=== PATIENT | female | born 1965 | race Caucasian/White ===

== ENCOUNTER 2018-10-01 09:37 | Emergency (ER) | payer SELFPAY ==
[~2018-10-01] VITALS: Ht 165.1 cm; Wt 63.5 kg
[2018-10-01 10:05] VITALS: BP 112/81
--- NOTE | 2018-10-01 10:26 | NUR ---
Pt's 4 puncture wounds and 1 cm laceration to right wrist were cleaned with sterile water and surgical scrub.
--- NOTE | 2018-10-01 10:55 | Diagnostic Imaging Report ---
INDICATION: Dogbite. Wrist pain. COMPARISON: None. FINDINGS: 2 views of the right wrist demonstrate no acute fracture or dislocation. There are no focal osseous lesions. No avascular necrosis is seen. The visualized soft tissue structures are unremarkable. The pronator fat pad is not displaced. There are no radio opaque foreign bodies. IMPRESSION: 1. Unremarkable radiographic exam of the right wrist. Dictated by: Dictated on workstation # [id number]
--- NOTE | 2018-10-01 10:59 | Diagnostic Imaging Report ---
INDICATION: Pain in the right forearm, status post dog bite. TIME OF EXAMINATION: 10:30 AM. TECHNIQUE: AP and lateral views of the forearm were obtained. FINDINGS: The alignment at the elbow and wrist appears normal. No definite fracture is seen. Lucency through the proximal ulna likely represents a vascular groove. No definite radiopaque soft tissue foreign body is seen. IMPRESSION: No acute abnormality is detected. Dictated by: Dictated on workstation # [id number]
--- NOTE | 2018-10-01 11:00 | NUR ---
Pt's dgt yelling for nurse to room. Pt is demanding pain med. Allergy reported as PCN to . Pt reported to Jeanette AVILA PCN and now Hydrocodone (rash/itching) when states she is ordering a pain pill. Pt asks "What do you have Dr?" "Do you have Demerol or Stadol?" Pt continues to pursue she only does better with these drugs. reports she will offer 1 dose Morphine and no scripts for home as not necessary if no fxs. Pt now states, "Dr I am allergic to Morphine! I break out and itch/rash." Pt was asked why are all the allergies coming up now.
[2018-10-01] MEDS ORDERED: HYDROcodone/APAP 5 MG/325 MG (LORTAB) TAB PO ONE (11:15)
--- NOTE | 2018-10-01 11:17 | ED General ---
General Chief Complaint: Bite-Animal/Human/Insect Stated Complaint: DOG BITE RT ARM Nursing Triage Note: Pt was brought to ER by private car, with daughter. She arrived with chief complaint of dig bite to right wrist. Pt stated onset was 919, was her son's dog and the dog is up to date on shots. Pt has controlled bleeding, with 4 puncture wounds to posterior wrist and 1 cm laceration to anterior wrist. Pt stated pain is a 10 and feels just like when she broke her wrist previously. Wounds were cleaned with sterile water and surgical scrub. Nursing Sepsis Screen: No Definite Risk History of Present Illness Date Seen by Provider: Oct 01, 2018 Time Seen by Provider: 10:30 Initial Comments This is a 53 y/o f who presents to the ED. States that she was attempting to separate two dogs that were fighting and was bitten to R forearm by her dog. Dog is fully vacinated. She states that she is UTD on tdap. She states pain is 10/10, sharp, worse with movement. Feels like previous wrist fractures. Allergies and Home Medications Allergies Coded Allergies: Penicillins (Verified Allergy, Unknown, anaphylactic, 10/01/18) hydrocodone (Verified Allergy, Unknown, rash, 10/01/18) Patient Home Medication List Home Medication List Reviewed: Yes Review of Systems Review of Systems Constitutional: No chills, No fever, No weakness Skin: +break in skin, no rash. Resp: no cough, no SOB, no wheezing Cards: no chest pain, no orthopnea, no LE edema, no palpitations GI: no abdominal pain, no nausea, no vomiting, no diarrhea : no dysuria Endo: no polyuria, no polyphagia, no polydipsia Psych: No depression, no substance abuse Past Setnirc-Ypsizl-Avkxea Hx Patient Social History Recent Foreign Travel: No Contact w/Someone Who Travel: No Recent Infectious Disease Expo: No Physical Abuse: No Sexual Abuse: No Mistreated: No Fear: No Physical Exam Vital Signs Vital Signs - First Documented 10/01/18 10:05 Temp 97.2 Pulse 72 Resp 24 B/P (MAP) 112/81 (91) Pulse Ox 100 O2 Delivery Room Air Capillary Refill : Less Than 3 Seconds Height, Weight, BMI Height: 5'5.00" Weight: 140lbs. 0oz. 63.039209al; BMI Method:Stated General Appearance: WD/WN, Anxious Comments HEENT: NC/AT Skin: 4 very small superficial abrasions to R forearm. Contrary to triage note there are no lacerations that require any approximation/further evaluation. All skin defects are superficial with no gaping. Neck: No JVD, Normal ROM Respiratory: No respiratory distress, lungs clear to auscultation bilateral, no wheezing, Cardio: RRR, no rubs, no murmurs, no clicks, no gallops, Radial pulses +2/4 bilateral Back: Normal ROM Extremities: R forearm with no obvious deformity. With distraction does not seem to have any tenderness. Observed to have normal use of RUE when distracted as well. Distal sensation intact. Radial pulse +2/4. Wiggles all 5 digits, declines to perform detail hand exam but noted to turkey picker objects apparently use hand appropriately. Psych: Anxious, agitated Progress/Results/Core Measures Suspected Sepsis Recent Fever Within 48 Hours: No Infection Criteria Present: None New/Unexplained Altered Menta: No Sepsis Screen: No Definite Risk SIRS Temperature:97.2 Pulse: 72 Respiratory Rate: 24 Blood Pressure 112 /81 Mean: 91 Results/Orders My Orders Orders - SHELDON SRIVASTAVA DO Forearm 2 View Right (10/01/18 10:21) Wrist 2 View Right (10/01/18 10:21) Amoxicillin/Clavulanate Tablet (Augmenti (10/01/18 17:00) Hydrocodone/Apap 5/325 Tablet (Lortab 5 (10/01/18 11:15) Vital Signs/I&O 10/01/18 10:05 Temp 97.2 Pulse 72 Resp 24 B/P (MAP) 112/81 (91) Pulse Ox 100 O2 Delivery Room Air Capillary Refill : Less Than 3 Seconds Blood Pressure Mean: 91 Progress Note : Time: 11:13 Progress Note pt an inconsistent historian during duration of ED visit. She initially stated that her tdap was UTD and then changed that. She also initially reported allergy to morphine/Hydrocodone (rash/hives) but then when advised that this facility did not have Demerol she changed her allergy. 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 Abrasions are very superficial and mild. Washed out by RN. Inconsistent effort during attempts at exam of RUE/hand exam but observed to use it appropriately to pick things up. Discussed plan for Augmentin course and pt stated "you can prescribed it but I won't take it" Educated onr david to be compliant and pt verbalized that she would take it. Advised OTC medications to control pain. Er return precautions given. Pt verbalized understanding. All questions answered. 11:22am After discharge typed up pt remains very agitated. She started yelling at the RN stating that she was "not answering any questions." She is yelling/ screaming. She dumped her ice pack on the floor. She is very upset that her XRs are normal. She refused Augmentin in the ER. She is refusing to stay for Tdap and is leaving AMA. She refused to sign AMA paperwork. pt left prior to getting her d/c paperwork. Departure Impression Primary Impression: Bite by animal Additional Impression: Dog bite Disposition: 07 AGAINST MEDICAL ADVICE Condition: Stable Departure-Patient Inst. Decision time for Depature: 11:18 Referrals: NO,LOCAL PHYSICIAN (PCP/Family) Primary Care Physician Patient Instructions: Animal Bites (DC) Add. Discharge Instructions: Please read the attached handout. Please take the entire course of antibiotics as prescribed. Take Ibuprofen/Tylenol for pain control. All discharge instructions reviewed with patient and/or family. Voiced understanding. Scripts Amoxicillin/Potassium Clav (Augmentin 875-125 Tablet) 1 Each Tablet 1 EACH PO BID, #14 TAB 0 Refills Prov: SHELDON SRIVASTAVA DO 10/01/18 SHELDON SRIVASTAVA DO Oct 01, 2018 11:17
--- NOTE | 2018-10-01 11:18 | NUR ---
Lortab administered after Dr ordered following discussion of the non-fx and plan to place on antibiotics and give a tetanus shot.
[2018-10-01] MEDS ORDERED: AMOX-358 PO (11:19)
--- NOTE | 2018-10-01 11:20 | NUR ---
Pt stormed out of ED room yelling at RN and she is leaving "going to a real hospital". Dr asked pt what is her issue with her care being offered; pt has reported we denied a tetanus shot and will not treat pain with a pain Rx. Pt refused antibiotic and states she does not see that as necessary. discussed again with pt that she has told us her tetanus was current when I assessed then she changed the story and have added allergies based on what she has ordered for her. Pt was asked politely to sign to refusal of tx and signing of AMA. Pt tries to pick the ink pen with her mouth to sign as refusing. Pt dumped her ice pack in Dr's dictation room and nurse having to meat pickler. Pt yelling at staff. Pt refused to sign out with registartion staff.
[2018-10-01] MEDS ORDERED: AUGMENTIN 875 MG TAB (AMOXICILLIN/CLAVULANATE) PO SCH (17:00)
== END 2018-10-01 11:20 | disposition left against medical advice (07) ==
LOC: ER FS 09:41
DX: S51.851A Open bite of right forearm, initial encounter (principal); Z88.0 Allergy status to penicillin; Z88.5 Allergy status to narcotic agent; W54.0XXA Bitten by dog, initial encounter
CPT/HCPCS: 73090; 73100; 99283

== ENCOUNTER 2022-05-13 18:25 | Emergency (ER) | payer SELFPAY ==
[~2022-05-13] VITALS: Ht 165 cm; Wt 70.3 kg
[~2022-05-13 18:25] MED LIST: AMOX-358 PO
--- NOTE | 2022-05-13 18:36 | ED Chest Pain ---
General Stated Complaint: CP History of Present Illness Date Seen by Provider: May 13, 2022 Time Seen by Provider: 18:35 Initial Comments 56-year-old female here with chest pain. States it started about 30 minutes prior to the ER. Has pain going up into the left neck. States it feels like someone squeezing in her left chest. She does have chest wall tenderness. No history of coronary artery disease. Is not on any medications. Is all tingling in the fingers and arms as well. No fever chills. No cough. Does have shor tness of breath also having a headache. It is in the whole head. She is holding her eyes. Light makes it worse Allergies and Home Medications Allergies Coded Allergies: Penicillins (Verified Allergy, Unknown, anaphylactic, 10/01/18) hydrocodone (Verified Allergy, Unknown, rash, 10/01/18) Patient Home Medication List Home Medication List Reviewed: Yes Amoxicillin/Potassium Clav (Augmentin 875-125 Tablet) 1 Each Tablet, 1 EACH PO BID Prescribed by: SHELDON SRIVASTAVA on 10/01/18 1119 Review of Systems Review of Systems Constitutional: see HPI Past Fwrdexm-Agyhia-Qbpeho Hx Patient Social History Tobacco Use?: No Physical Exam Vital Signs Vital Signs - First Documented 05/13/22 18:29 Temp 36.3 Pulse 73 Resp 16 B/P (MAP) 113/58 (76) Pulse Ox 100 O2 Delivery Room Air Capillary Refill : Height, Weight, BMI Height: 5'5.00" Weight: 140lbs. 0oz. 63.270309aj; BMI Method:Stated General Appearance: No Apparent Distress, WD/WN HEENT: Normal ENT Inspection, Pharynx Normal Neck: Non Tender, Supple Respiratory: Other (tender over sternum and right side of sternum) Cardiovascular: Regular Rate, Rhythm, No Murmur Gastrointestinal: Normal Bowel Sounds, Soft Skin: Normal Color, Warm/Dry Progress/Results/Core Measures Results/Orders Lab Results Laboratory Tests Test 05/13/22 18:33 Range/Units White Blood Count 10.1 4.3-11.0 10^3/uL Red Blood Count 4.49 3.80-5.11 10^6/uL Hemoglobin 13.5 11.5-16.0 g/dL Hematocrit 40 35-52 % Mean Corpuscular Volume 90 80-99 fL Mean Corpuscular Hemoglobin 30 25-34 pg Mean Corpuscular Hemoglobin Concent 34 32-36 g/dL Red Cell Distribution Width 13.1 10.0-14.5 % Platelet Count 278 130-400 10^3/uL Mean Platelet Volume 11.3 9.0-12.2 fL Immature Granulocyte % (Auto) 0 % Neutrophils (%) (Auto) 58 42-75 % Lymphocytes (%) (Auto) 33 12-44 % Monocytes (%) (Auto) 6 0-12 % Eosinophils (%) (Auto) 2 0-10 % Basophils (%) (Auto) 1 0-10 % Neutrophils # (Auto) 5.9 1.8-7.8 10^3/uL Lymphocytes # (Auto) 3.3 1.0-4.0 10^3/uL Monocytes # (Auto) 0.6 0.0-1.0 10^3/uL Eosinophils # (Auto) 0.2 0.0-0.3 10^3/uL Basophils # (Auto) 0.1 0.0-0.1 10^3/uL Immature Granulocyte # (Auto) 0.0 0.0-0.1 10^3/uL Prothrombin Time 12.5 12.2-14.7 SEC INR Comment 0.9 0.8-1.4 Activated Partial Thromboplast Time 25 24-35 SEC Sodium Level 140 135-145 MMOL/L Potassium Level 3.2 L 3.6-5.0 MMOL/L Chloride Level 104 98-107 MMOL/L Carbon Dioxide Level 24 21-32 MMOL/L Anion Gap 12 5-14 MMOL/L Blood Urea Nitrogen 11 7-18 MG/DL Creatinine 0.89 0.60-1.30 MG/DL Estimat Glomerular Filtration Rate 76 BUN/Creatinine Ratio 12 Glucose Level 99 70-105 MG/DL Calcium Level 9.0 8.5-10.1 MG/DL Corrected Calcium 9.1 8.5-10.1 MG/DL Magnesium Level 2.3 1.6-2.4 MG/DL Total Bilirubin 0.2 0.1-1.0 MG/DL Aspartate Amino Transf (AST/SGOT) 11 5-34 U/L Alanine Aminotransferase (ALT/SGPT) 7 0-55 U/L Alkaline Phosphatase 108 40-136 U/L Troponin I < 0.30 <0.30 NG/ML Total Protein 6.8 6.4-8.2 GM/DL Albumin 3.9 3.2-4.5 GM/DL My Orders Orders - NEIL ZAMORA MD Cbc With Automated Diff (05/13/22 18:33) Magnesium (05/13/22 18:33) Chest 1 View Ap/Pa Only (05/13/22 18:33) Ekg Tracing (05/13/22 18:33) Comprehensive Metabolic Panel (05/13/22 18:33) Protime With Inr (05/13/22 18:33) Partial Thromboplastin Time (05/13/22 18:33) O2 (05/13/22 18:33) Monitor-Rhythm Ecg Trace Only (05/13/22 18:33) Ed Iv/Invasive Line Start (05/13/22 18:33) Troponin I Fs (05/13/22 18:33) Ketorolac Injection (Toradol Injection) (05/13/22 19:30) Medications Given in ED Current Medications Medications Dose Ordered Sig/Vicky Route Start Time Stop Time Status Last Admin Dose Admin Ketorolac Tromethamine 30 mg ONCE ONCE IVP 05/13/22 19:30 05/13/22 19:31 DC 05/13/22 19:48 30 MG Vital Signs/I&O 05/13/22 18:29 Temp 36.3 Pulse 73 Resp 16 B/P (MAP) 113/58 (76) Pulse Ox 100 O2 Delivery Room Air Initial ECG Impression Date: May 13, 2022 Initial ECG Impression Time: 18:31 Initial ECG Rhythm: Normal Sinus Initial ECG Intervals: Normal Initial ECG Impression: Normal Comment No ST elevation or depression. Diagnostic Imaging Diagonstic Imaging: Xray Plain Films/CT/US/NM/MRI: chest Comments [place] NAME: KHRIS BARAHONA [facility] REC#: [id number] PT STATUS: REG ER : 1965 PHYSICIAN: NEIL ZAMORA MD ADMIT DATE: 05/13/22/ER FS Draft Date of Exam:05/13/22 CHEST 1 VIEW AP/PA ONLY INDICATION: Chest pain. COMPARISON: None available. TECHNIQUE: Single radiograph of the chest dated May 13, 2022. FINDINGS: The cardiac silhouette is within normal limits in size. No significant pulmonary vascular congestion. The lungs are clear. No pleural effusion. No pneumothorax. No acute osseous abnormality. IMPRESSION: No acute cardiopulmonary abnormality. Dictated on workstation # [id number] Dict: 05/13/221847 Trans: 05/13/[id number] PJE [id number] Interpreted by: ARACELI LOAIZA MD Electronically signed by: Departure Impression Primary Impression: Chest pain Qualified Codes: R07.89 - Other chest pain Additional Impression: Headache Disposition: HOME, SELF-CARE Condition: Stable Departure-Patient Inst. Decision time for Depature: 20:20 Referrals: NO,LOCAL PHYSICIAN (PCP/Family) Primary Care Physician Patient Instructions: Chest Pain That Is Not Caused by the Heart (DC), Headache, Adult Add. Discharge Instructions: Ibuprofen and Tylenol for headache. Chest pain is noncardiac. Follow-up with primary care for further evaluation. ER if symptoms worsen NEIL ZAMORA MD May 13, 2022 18:35
[2022-05-13 18:44] LABS: BASOPHILS # (AUTO) 0.1 10^3/uL (0.0-0.1); BASOPHILS % (AUTO) 1 % (0-10); EOSINOPHILS # (AUTO) 0.2 10^3/uL (0.0-0.3); EOSINOPHILS % (AUTO) 2 % (0-10); HEMATOCRIT 40 % (35-52); HEMOGLOBIN 13.5 g/dL (11.5-16.0); LYMPHOCYTES # (AUTO) 3.3 10^3/uL (1.0-4.0); LYMPHOCYTES % (AUTO) 33 % (12-44); MEAN CORPUSCULAR HEMOGLOBIN 30 pg (25-34); MEAN CORPUSCULAR HGB CONC 34 g/dL (32-36); MEAN CORPUSCULAR VOLUME 90 fL (80-99); MEAN PLATELET VOLUME 11.3 fL (9.0-12.2); MONOCYTES # (AUTO) 0.6 10^3/uL (0.0-1.0); MONOCYTES % (AUTO) 6 % (0-12); NEUTROPHILS # (AUTO) 5.9 10^3/uL (1.8-7.8); NEUTROPHILS % (AUTO) 58 % (42-75); PLATELET COUNT 278 10^3/uL (130-400); WHITE BLOOD COUNT 10.1 10^3/uL (4.3-11.0)
[2022-05-13 18:50] LABS: INR 0.9 (0.8-1.4); PROTHROMBIN TIME PATIENT 12.5 SEC (12.2-14.7)
--- NOTE | 2022-05-13 18:51 | Diagnostic Imaging Report ---
INDICATION: Chest pain. COMPARISON: None available. TECHNIQUE: Single radiograph of the chest dated May 13, 2022. FINDINGS: The cardiac silhouette is within normal limits in size. No significant pulmonary vascular congestion. The lungs are clear. No pleural effusion. No pneumothorax. No acute osseous abnormality. IMPRESSION: No acute cardiopulmonary abnormality. Dictated by: Dictated on workstation # [id number]
[2022-05-13 19:00] LABS: ALBUMIN 3.9 GM/DL (3.2-4.5); BILIRUBIN,TOTAL 0.2 MG/DL (0.1-1.0); CREATININE SERUM 0.89 MG/DL (0.60-1.30); MAGNESIUM 2.3 MG/DL (1.6-2.4); POTASSIUM 3.2 MMOL/L (3.6-5.0); TOTAL PROTEIN 6.8 GM/DL (6.4-8.2)
[2022-05-13] MEDS ORDERED: KETOROLAC 30 MG/ML VIAL IVP ONE (19:30)
[2022-05-13 20:24] VITALS: BP 120/56
== END 2022-05-13 20:24 | disposition home or self-care (01) ==
LOC: EDUNIT# 18:25 → ER FS 18:26
DX: R07.89 Other chest pain (principal); R51.9 Headache, unspecified
CPT/HCPCS: 36415; 71045; 80053; 83735; 84484; 85025; 85610; 85730; 93005; 93041